=== PATIENT | male | born 1980 | race African-American/Black ===

== ENCOUNTER 2024-05-09 18:57 | Emergency (ER) | payer MEDICARE, MEDICAID ==
[~2024-05-09] VITALS: Ht 182.9 cm; Wt 109.0 kg
[2024-05-09 19:07] VITALS: TEMP 98; O2SAT 98
[2024-05-09 22:00] VITALS: BP 107/67; PULSE 65; RESP 16; O2SAT 98
== END 2024-05-09 23:46 | disposition home or self-care (01) ==
LOC: ER 18:57
DX: G24.02 Drug induced acute dystonia (principal); E11.9 Type 2 diabetes mellitus without complications; I10 Essential (primary) hypertension
CPT/HCPCS: 99283